=== PATIENT | female | born 1975 | race Caucasian/White ===

== ENCOUNTER 2024-12-19 12:39 | Emergency (ER) | payer MEDICAID, OTHER ==
[~2024-12-19] VITALS: Ht 170.2 cm; Wt 73.0 kg
[~2024-12-19 12:39] MED LIST: BCP; TYLENOL
--- NOTE | 2024-12-19 12:52 | ED.PDOC ---
GI ASSESSMENT HPI Comments HPI: Poor Historian. 49-year-old female presents to emergency department by EMS from home for one day history of right lower quadrant pain constant nonradiating with the associated mild nausea but no vomiting. Denies any other acute symptoms. Per EMS, pre- hospital course vital signs were stable. Patient denies Past Medical History: Asthma Past Surgical History: Left hand surgery Denies any use of drugs or alcohol REVIEW OF SYSTEMS: CONSTITUTIONAL: Denies acute: fever, diaphoresis, chills, generalized weakness. HEAD: Denies acute: headache, photophobia Eyes: Denies acute: Double vision, vision loss, eye pain, eye discharge. EARS: Denies acute: tinnitus, hearing loss, ear discharge, ear pain, THROAT: Denies acute: sore throat, swelling, difficulty swallowing , pain with swallowing, change in voice. NECK: Denies acute: neck pain, neck swelling, stiff neck. HEART: Denies acute : chest pain, palpitations, LUNGS: Denies acute: SOB, wheezing, cough, hemoptysis ABDOMEN: Denies acute: , Vomiting, diarrhea, melena , hematemesis, hematochezia SKIN: Denies acute: rash, redness, lesions, itchiness. EXTREMITIES: Denies acute: calf pain, numbness, tingling, weakness, denies pain in extremity. Denies acute: Low back pain. Neuro: Denies acute: focal neurological deficit, motor or sensory focal neurological deficit, tremors, seizure like activity, confusion, dizziness, change in mental status, loss of bowel or bladder function, cauda equina like symptoms. : Denies acute: dysuria, hematuria, flank pain, increase in urinary frequency. PSYCH: Denies acute: hallucination, suicidal ideation, homicidal ideation. FEMALE: Denies acute: abnormal vaginal bleeding, foul odor, unusual discharge. PHYSICAL EXAM: General: ----[id number]----acute distress, awake and alert. Head: normocephalic, atraumatic. Neck: supple, trachea is midline, no swelling. Throat: Normal phonation. Eyes:, no erythema, no purulent discharge, no proptosis, no icterus. Heart: regular rate, regular rhythm, no significant murmur appreciated. Lungs: no apparent respiratory distress, Able to speak in full sentences. No wheezing, no rhonchi, no crackles. No stridors Clear to auscultation bilaterally. Abdomen: Right lower quadrant tender to palpation, non distended, soft, no guarding, no rebound, + bowel sounds. Neuro: Awake, Alert, oriented to name, self, situation, follows commands GCS=15. Speech is normal. Skin: no petechia, no purpura, no cyanosis, non-pale, not jaundice. Lower extremities: --no - Pitting edema no deformity, no focal swelling, no calf TTP. Makes eye contact. moves all four extremities. Face: no apparent facial droop. No CVA tenderness to percussion bilaterally. ED COURSE: Chief Complaint: Abdominal Pain Time Seen by MD: 12:50 Reviewed Notes: Nurses Notes Allergies: Coded Allergies: NO KNOWN ALLERGIES (Unverified , 01/14/10) Home Meds Reported Medications [Bcp] No Conflict Check 01/14/10 [Tylenol] No Conflict Check 01/14/10 Information Source: Patient, Emergency Med Personnel Was a procedure done? Was a procedure done?: No GI differential Dx Differential Diagnosis: Other (DDX include Diverticulitis, colitis, gastroenteritis, acute abdomen, SBO, enteritis, constipation, volvulus, appendicitis, Gallbladder disease, choledocolithiasis, ascending cholangitis, pancreatitis, intraAbdominal mass/neoplasm, hepatitis, UTI, pylonephritis, kidney stone, aneurysm, dissection, Inflammatory bowel disease, gastroparesis, ischemic bowel, ovarian torsion, ovarian cyst/mass, tubo-ovarian abscess, , ectopic , PID, STD.) X-Ray, Labs, Meds, VS Vital Signs Date Time Temp Pulse Resp B/P (MAP) Pulse Ox O2 Delivery O2 Flow Rate FiO2 12/19/24 18:44 73 16 95 Room Air 12/19/24 18:44 97.8 73 16 114/54 (74) 95 97.8 12/19/24 16:14 97.6 68 20 126/79 (95) 97 97.6 12/19/24 16:11 62 20 95 Room Air* 0 21 12/19/24 15:56 98.2 68 20 129/75 (93) 95 98.2 12/19/24 12:48 98.2 72 14 99/76 (84) 92 98.2 Lab Test 12/19/24 16:57 12/19/24 13:12 Range/Units Urine Color Yellow Yellow Urine Clarity Clear Clear Urine pH 5.5 5.0-9.0 Urine Specific [place] 1.034 1.001-1.035 Urine Protein Trace H Negative Urine Ketones Negative Negative Urine Blood Negative Negative /uL Urine Nitrite Negative Negative Urine Bilirubin Negative Negative Urine Urobilinogen 2 H Negative mg/dL Urine Leukocyte Esterase Negative Negative /uL Urine RBC 1 0 - 4 /hpf Urine Microscopic WBC 2 0-5 /HPF Urine Squamous Epithelial Cells Few <5 /hpf Urine Bacteria Few H None Seen /hpf Urine Mucus Few None Seen Urine Glucose Normal Normal mg/dL Urine Test Negative Negative White Blood Count 11.9 H 4.4-10.8 10^3/uL Red Blood Count 4.86 4.0-5.20 10^6/uL Hemoglobin 15.2 12.2-16.2 g/dL Hematocrit 44.4 36.0-46.0 % Mean Corpuscular Volume 91.5 80.0-100.0 fL Mean Corpuscular Hemoglobin 31.2 28.0-32.0 pg Mean Corpuscular Hemoglobin Concent 34.1 32.0-36.0 g/dL Red Cell Distribution Width 13.1 11.8-14.3 % Platelet Count 230 140-450 10^3/uL Mean Platelet Volume 8.3 6.9-10.8 fL Neutrophils (%) (Auto) 77.4 37.0-80.0 % Lymphocytes (%) (Auto) 14.4 10.0-50.0 % Monocytes (%) (Auto) 6.3 0.0-12.0 % Eosinophils (%) (Auto) 0.8 0.0-7.0 % Basophils (%) (Auto) 1.1 0.0-2.0 % Neutrophils # (Auto) 9.2 H 1.6-8.6 10 ^3/uL Lymphocytes # (Auto) 1.7 0.4-5.4 10 ^3/uL Monocytes # (Auto) 0.8 0-1.3 10 ^3/uL Eosinophils # (Auto) 0.1 0-0.8 10 ^3/uL Basophils # (Auto) 0.1 0-0.2 10 ^3/uL Nucleated Red Blood Cells 0.1 % Sodium Level 141 136-145 mmol/L Potassium Level 4.8 3.5-5.1 mmol/L Chloride Level 110 H 98-107 mmol/L Carbon Dioxide Level 26 20-31 mmol/L Anion Gap 5 5-15 Blood Urea Nitrogen 13 9-23 mg/dL Creatinine 1.19 H 0.550-1.02 mg/dL Glomerular Filtration Rate Calc 57 >90 mL/min BUN/Creatinine Ratio 10.9 10.0-20.0 Serum Glucose 85 74-106 mg/dL Lactic Acid Level 1.3 0.4-2.0 mmol/L Calcium Level 9.8 8.7-10.4 mg/dL Total Bilirubin 1.0 0.2-1.0 mg/dL Aspartate Amino Transferase (AST) 22 13-40 U/L Alanine Aminotransferase (ALT) 21 7-40 U/L Alkaline Phosphatase 55 46-116 U/L Total Protein 6.6 5.7-8.2 g/dL Albumin 4.4 3.2-4.8 g/dL Lipase 38 12-53 U/L Current Medications Medications (Trade) Dose Ordered Sig/Sintia Route Start Time Stop Time Status Last Admin Sodium Chloride 1,000 ml @ 1,000 mls/hr Q1H ONCE IV 12/19/24 14:45 12/19/24 15:44 DC 12/19/24 16:18 Ketorolac Tromethamine (Toradol Injection) 30 mg ONCE ONCE IV 12/19/24 16:30 12/19/24 16:31 DC 12/19/24 16:24 PATIENT: STEPAN WHITNEYT: [id number]: [id number] : 1975 LOC: ER ROOM / BED: / AGE / SEX: 49 / F ADM STATUS: REG ER SERVICE 1252 ORDERING PHYSICIAN: JACOBY ALBERT DO PROCEDURE(s): ABPL - CT AB PEL WO CON-NO ORAL OR IV REASON: RLQ ORDER NUMBER(s): [id number], ACCESSION NUMBER(s): [id number] Exam: CT CT AB PEL WO CON-NO ORAL OR IV History: RLQ Comparison Study: None TECHNIQUE: Multidetector CT of the abdomen and pelvis without IV contrast. Axial, coronal and sagittal multiplanar reformats were obtained from the axial data set by the technologist. Radiation Dose Information: CT Dose: CTDI volume is 7.25 mGy. Dose-length product is 367.14 mGy*cm FINDINGS: The lung bases are clear. Partially visualized heart is unremarkable. Liver, gallbladder, pancreas and adrenal glands unremarkable. Nonspecific 2.4 x 1.4 cm hypodensity within the pancreas which may represent calcified lesion/ sequela of prior injury. Small splenule is noted adjacent to the spleen. Kidneys, ureters and urinary bladder are unremarkable. Uterus appears unremarkable. There is moderate to large amount of complex heterogeneous density within the pelvis, mainly over the cul-de-sac which may represent blood products. Stomach is unremarkable. Mild wall Thickening of proximal small bowel loops which may be due to inadequate distention. The remainder of the small bowel loops are nondistended. Appendix measures up to 8 mm without significant adjacent inflammatory reaction. Redundant sigmoid. Small to moderate amount of fecal material within the colon with decompression of the rectosigmoid No evidence of intraperitoneal free air. No evidence of aortic aneurysm. No significant lymphadenopathy. Tiny fat containing umbilical hernia. The soft tissues are unremarkable. No destructive osseous lesions are noted. IMPRESSION: Complex heterogeneous density within the pelvis mainly within the cul-de-sac which may represent blood products. Correlate for ruptured cyst/ ruptured ectopic. Recommend correlation with beta HCG and pelvic ultrasound for further evaluation. Appendix measures up to 8 mm without significant adjacent inflammatory reaction. Early acute appendicitis can not be excluded. Additional findings as above. ATED BY: FANNY VIRAMONTES DO DICTATED DATE/TIME: 12/19/241336 SIGNED BY: FANNY VIRAMONTES DO SIGNED DATE/TIME: 12/19/241336 PATIENT: OSEAS WHITNEY ACCT: [id number] UNIT: [id number] : 1975 LOC: ER ROOM / BED: / AGE / SEX: 49 / F ADM STATUS: REG ER SERVICE 1444 ORDERING PHYSICIAN: JACOBY ALBERT DO PROCEDURE(s): PELUS - PELVIC REASON: rlq pain ORDER NUMBER(s): [id number], ACCESSION NUMBER(s): [id number] INDICATION: rlq pain TECHNIQUE: Multiple real-time grayscale transabdominal sonographic images along with color and duplex Doppler of the uterus and ovaries were obtained. COMPARISON: None FINDINGS: The uterus measures 8 x 4.4 x 4.6 cm. The endometrial stripe measures 12 mm. The right ovary measures 2.7 x 1.4 x 1.6 cm. The left ovary measures 3 x 2.2 x 2.2 cm. Subsequent color and duplex Doppler interrogation of the ovaries demonstrated symmetric vascular flow to both ovaries, though this does not exclude the possibility of torsion due to the dual blood supply. IMPRESSION: 1. Grossly unremarkable pelvic ultrasound. ATED BY: NOE BARNETT Jr., DO DICTATED DATE/TIME: 12/19/241531 SIGNED BY: NOE BARNETT Jr., SIGNED DATE/TIME: 12/19/241531 Time of 1ST Reevaluation: 17:28 (As of now urinalysis still pending.) Reevaluation 1ST: Improved Time of 2ND Reevaluation: 00:00 Reevaluation 2ND: Resolved Patient Education/Counseling: Diagnosis, Treatment Family Education/Counseling: No Family Present Comments Patient presented with the above HPI.--abdominal pain/pelvic pain----workup was initiated. patient was found with the above mentioned diagnosis. the following medications were ordered: please refer to order lists of meds and tests obtained by myself Dr. Albert. Patient ED course and VS have been stabilized. Patient has been reassessed in the ED and remained in a stable condition. Pertinent incidental findings were discussed with the patient and/or family. Patient/family voices understanding and is agreeable with plan. Patient has been observed in the ED adequate length of time to insure improvement/stability. Escalation of care considered: Consideration of escalation to observation or admission Patient was DISCHARGED home in a stable condition. All the reports of any imaging studies that were ordered by myself were reviewed by myself. Departure 1 Departure Time of Disposition: 16:43 Impression: Primary Impression: Right lower quadrant pain Disposition: 01 HOME / SELF CARE / HOMELESS Condition: Stable Additional Instructions: ADDITIONAL INSTRUCTIONS: YOU MUST FOLLOW-UP WITH YOUR PRIMARY CARE/FAMILY DOCTOR IN 1 TO 2 DAYS. IF YOU ARE UNABLE TO SEE YOUR PRIMARY CARE/FAMILY DOCTOR, PLEASE RETURN TO OUR EMERGENCY ROOM FOR RE-ASSESSMENT AND RE-EVALUATION IN 1 TO 2 DAYS. RETURN TO THE EMERGENCY ROOM HERE IN OUR FACILITY OR TO THE NEAREST ER JE[facility] IF YOUR SYMPTOMS CHANGE OR WORSEN. CONSULTATIONS: YOU MUST FOLLOW-UP FOR CONSULTATION SOON POSSIBLE WITH: DR.-OB BARRERA DOCTOR IN 1-2 DAYS. PLEASE CALL FOR APPOINTMENT. YOU MUST CALL THE CONSULTANTS OFFICE YOURSELF TO MAKE AN APPOINTMENT. YOU MAY NEED TO ARRANGE THAT THROUGH YOUR INSURANCE AND/OR YOUR PRIMARY/FAMILY DOCTOR. IF YOU ARE UNABLE TO SEE THE ANIMAL SHELTER WORKER IN 1 TO 2 DAYS, YOU MUST RETURN TO OUR EMERGENCY ROOM (OR ANY OTHER ER OF YOUR CHOICE) FOR RE-ASSESSMENT AND RE- EVALUATION. ADEQUATE FLUID HYDRATION. PELVIC REST. BELOW IS A COPY OF YOUR RADIOLOGICAL REPORT FOR FOLLOW UP: [place] [address] Ph: [phone] DIAGNOSTIC IMAGING Diagnostic Imaging Report : [id number] Signed PATIENT: OSEAS WHITNEY ACCT: [id number] UNIT: [id number] : 1975 LOC: ER ROOM / BED: / AGE / SEX: 49 / F ADM STATUS: REG ER SERVICE 1444 ORDERING PHYSICIAN: JACOBY ALBERT DO PROCEDURE(s): PELUS - PELVIC REASON: rlq pain ORDER NUMBER(s): [id number], ACCESSION NUMBER(s): [id number] INDICATION: rlq pain TECHNIQUE: Multiple real-time grayscale transabdominal sonographic images along with color and duplex Doppler of the uterus and ovaries were obtained. COMPARISON: None FINDINGS: The uterus measures 8 x 4.4 x 4.6 cm. The endometrial stripe measures 12 mm. The right ovary measures 2.7 x 1.4 x 1.6 cm. The left ovary measures 3 x 2.2 x 2.2 cm. Subsequent color and duplex Doppler interrogation of the ovaries demonstrated symmetric vascular flow to both ovaries, though this does not exclude the possibility of torsion due to the dual blood supply. IMPRESSION: 1. Grossly unremarkable pelvic ultrasound. ATED BY: NOE BARNETT Jr., DO DICTATED DATE/TIME: 12/19/241531 SIGNED BY: NOE BARNETT Jr., DO SIGNED DATE/TIME: 12/19/24 1532 CC: [address] [id number] Ph: [phone] DIAGNOSTIC IMAGING Diagnostic Imaging Report : [id number] Signed PATIENT: OSEAS WHITNEY ACCT: [id number] UNIT: [id number] : 1975 LOC: ER ROOM / BED: / AGE / SEX: 49 / F ADM STATUS: REG ER SERVICE 1252 ORDERING PHYSICIAN: JACOBY ALBERT DO PROCEDURE(s): ABPL - CT AB PEL WO CON-NO ORAL OR IV REASON: RLQ ORDER NUMBER(s): [id number], ACCESSION NUMBER(s): [id number] Exam: CT CT AB PEL WO CON-NO ORAL OR IV History: RLQ Comparison Study: None TECHNIQUE: Multidetector CT of the abdomen and pelvis without IV contrast. Axial, coronal and sagittal multiplanar reformats were obtained from the axial data set by the technologist. Radiation Dose Information: CT Dose: CTDI volume is 7.25 mGy. Dose-length product is 367.14 mGy*cm FINDINGS: The lung bases are clear. Partially visualized heart is unremarkable. Liver, gallbladder, pancreas and adrenal glands unremarkable. Nonspecific 2.4 x 1.4 cm hypodensity within the pancreas which may represent calcified lesion/ sequela of prior injury. Small splenule is noted adjacent to the spleen. Kidneys, ureters and urinary bladder are unremarkable. Uterus appears unremarkable. There is moderate to large amount of complex heterogeneous density within the pelvis, mainly over the cul-de-sac which may represent blood products. Stomach is unremarkable. Mild wall Thickening of proximal small bowel loops which may be due to inadequate distention. The remainder of the small bowel loops are nondistended. Appendix measures up to 8 mm without significant adjacent inflammatory reaction. Redundant sigmoid. Small to moderate amount of fecal material within the colon with decompression of the rectosigmoid No evidence of intraperitoneal free air. No evidence of aortic aneurysm. No significant lymphadenopathy. Tiny fat containing umbilical hernia. The soft tissues are unremarkable. No destructive osseous lesions are noted. IMPRESSION: Complex heterogeneous density within the pelvis mainly within the cul-de-sac which may represent blood products. Correlate for ruptured cyst/ ruptured ectopic. Recommend correlation with beta HCG and pelvic ultrasound for further evaluation. Appendix measures up to 8 mm without significant adjacent inflammatory reaction. Early acute appendicitis can not be excluded. Additional findings as above. ATED BY: FANNY VIRAMONTES DO DICTATED DATE/TIME: 12/19/24 1337 SIGNED BY: FANNY VIRAMONTES DO SIGNED DATE/TIME: 12/19/24 1337 CC: Discharged With: Self Critical Care Note Critical Care Time?: No Heart Score Heart Score: Heart Score Response (Comments) Value History N/A 0 EKG N/A 0 Age N/A 0 Risk Factors N/A 0 Troponin N/A 0 Total 0 I personally scribed for JACOBY ALBERT DO ([email or web address]) on 12/19/24 at 13:50. Electronically submitted by Paul Jalloh ([email or web address]). I personally scribed for JACOBY ALBERT DO ([email or web address]) on 12/19/24 at 16:04. Electronically submitted by Paul Jalloh ([email or web address]). JACOBY ALBERT DO Dec 19, 2024 12:52
[2024-12-19 13:28] LABS: Basophils # (auto) 0.1 10 ^3/uL (0-0.2); Basophils % (auto) 1.1 % (0.0-2.0); Eosinophils # (auto) 0.1 10 ^3/uL (0-0.8); Eosinophils % (auto) 0.8 % (0.0-7.0); Hematocrit 44.4 % (36.0-46.0); Hemoglobin 15.2 g/dL (12.2-16.2); Lymphocytes # (auto) 1.7 10 ^3/uL (0.4-5.4); Lymphocytes % (auto) 14.4 % (10.0-50.0); Mean Corpuscular Hemoglobin 31.2 pg (28.0-32.0); Mean Corpuscular Hgb Conc. 34.1 g/dL (32.0-36.0); Mean Corpuscular Volume 91.5 fL (80.0-100.0); Monocytes # (auto) 0.8 10 ^3/uL (0-1.3); Monocytes % (auto) 6.3 % (0.0-12.0); Neutrophils # (auto) 9.2 10 ^3/uL (1.6-8.6); Neutrophils % (auto) 77.4 % (37.0-80.0); Nucleated Red Blood Cells % 0.1 %; Platelet Count (auto) 230 10^3/uL (140-450); Red Blood Cells 4.86 10^6/uL (4.0-5.20); Red Cell Distribution Width 13.1 % (11.8-14.3); White Blood Cell 11.9 10^3/uL (4.4-10.8)
--- NOTE | 2024-12-19 13:39 | DVH ---
Exam: CT CT AB PEL WO CON-NO ORAL OR IV History: RLQ Comparison Study: None TECHNIQUE: Multidetector CT of the abdomen and pelvis without IV contrast. Axial, coronal and sagitta l multiplanar reformats were obtained from the axial data set by the technologist. Radiation Dose Information: CT Dose: CTDI volume is 7.25 mGy. Dose-length product is 367.14 mGy*cm FINDINGS: The lung bases are clear. Partially visualized heart is unremarkable. Liver, gallbladder, pancreas and adrenal glands unremarkable. Nonspecific 2.4 x 1.4 cm hypodensity wi thin the pancreas which may represent calcified lesion/ sequela of prior injury. Small splenule is no juan alberto adjacent to the spleen. Kidneys, ureters and urinary bladder are unremarkable. Uterus appears unremarkable. There is moderate to large amount of complex heterogeneous density within the pelvis, mainly over the cul-de-sac which may represent blood products. Stomach is unremarkable. Mild wall Thickening of proximal small bowel loops which may be due to inade quate distention. The remainder of the small bowel loops are nondistended. Appendix measures up to 8 mm without significant adjacent inflammatory reaction. Redundant sigmoid. Small to moderate amount of fecal material within the colon with decompression of the rectosigmoid No evidence of intraperitoneal free air. No evidence of aortic aneurysm. No significant lymphadenopathy. Tiny fat containing umbilical hernia. The soft tissues are unremarkable. No destructive osseous lesio ns are noted. IMPRESSION: Complex heterogeneous density within the pelvis mainly within the cul-de-sac which may represent bloo d products. Correlate for ruptured cyst/ ruptured ectopic. Recommend correlation with beta HCG and p elvic ultrasound for further evaluation. Appendix measures up to 8 mm without significant adjacent inflammatory reaction. Early acute appendic itis can not be excluded. Additional findings as above.
[2024-12-19 13:49] LABS: Alanine Aminotransferase 21 U/L (7-40); Albumin 4.4 g/dL (3.2-4.8); Alkaline Phosphatase 55 U/L (46-116); Anion Gap 5 (5-15); Aspartate Aminotransferase 22 U/L (13-40); BUN/Creatinine Ratio 10.9 (10.0-20.0); Blood Urea Nitrogen 13 mg/dL (9-23); Calcium 9.8 mg/dL (8.7-10.4); Carbon Dioxide 26 mmol/L (20-31); Glucose 85 mg/dL (74-106); Potassium 4.8 mmol/L (3.5-5.1); Sodium 141 mmol/L (136-145); Total Protein 6.6 g/dL (5.7-8.2)
[2024-12-19 13:50] LABS: Chloride 110 mmol/L (98-107)
[2024-12-19 14:01] LABS: Lipase 38 U/L (12-53)
--- NOTE | 2024-12-19 15:36 | DVH ---
INDICATION: rlq pain TECHNIQUE: Multiple real-time grayscale transabdominal sonographic images along with color and duplex Doppler of the uterus and ovaries were obtained. COMPARISON: None FINDINGS: The uterus measures 8 x 4.4 x 4.6 cm. The endometrial stripe measures 12 mm. The right ovary measures 2.7 x 1.4 x 1.6 cm. The left ovary measures 3 x 2.2 x 2.2 cm. Subsequent color and duplex Doppler interrogation of the ovaries demonstrated symmetric vascular flow to both ovaries, though this does not exclude the possibility of torsion due to the dual blood suppl y. IMPRESSION: 1. Grossly unremarkable pelvic ultrasound.
[2024-12-19 16:11] VITALS: PULSE 62; RESP 20; O2SAT 95
[2024-12-19] MEDS: SODIUM CHLORIDE 0.9% 1,000 ML IV ONE (16:18)
[2024-12-19] MEDS: KETOROLAC TROMETH 30 MG/ML 1ML VIAL IV ONE (16:24)
[2024-12-19] MEDS: KETOROLAC TROMETH 30 MG/ML 1ML VIAL ONE (16:26)
[2024-12-19 18:01] LABS: Urine Bacteria FEW /hpf (None Seen); Urine Blood Negative /uL (Negative); Urine Clarity Clear (Clear); Urine Color Yellow (Yellow); Urine Mucus FEW (None Seen); Urine Protein, UAD TRACE (Negative); Urine Specific Gravity 1.034 (1.001-1.035); Urine Squamous Epithelial Cell FEW /hpf (<5); Urine Urobilinogen 2 mg/dL (Negative); Urine WBC 2 /HPF (0-5); Urine pH 5.5 (5.0-9.0)
[2024-12-19 18:44] VITALS: BP 114/54; PULSE 73; RESP 16; TEMP 97.8; O2SAT 95
== END 2024-12-19 18:45 | disposition home or self-care (01) ==
LOC: EDBD 12:39 → ER 12:39
DX: R10.31 Right lower quadrant pain (principal); R11.0 Nausea; J45.909 Unspecified asthma, uncomplicated; Z98.890 Other specified postprocedural states
CPT/HCPCS: 36415; 74176; 76856; 80053; 81001; 81025; 83605; 83690; 85025; 96361; 96374; 99285; J1885; J7030

== ENCOUNTER 2025-01-04 11:26 | Emergency (ER) | payer MEDICAID ==
[~2025-01-04] VITALS: Ht 170.2 cm; Wt 69.2 kg
--- NOTE | 2025-01-04 11:44 | ED.PDOC ---
GI ASSESSMENT HPI Comments HPI: Poor Historian. Past Medical History: Remote history of methamphetamine abuse. Past Surgical History: Denies any . Denies any recent use of drugs. 49y F who presents to the ED for chief complaint of abdominal pain. - pt states she has been having RLQ for the past 2 weeks - pt states the pain is intermittent, radiating to the R flank, sharp in nature, rating the pain 3/10, with noted exacerbating factor of movement and no relieving factors - pt states she has also been having Diarrhea since with 2 episodes yesterday and 1 episode today. - pt had BM today and states it was light green in color - pt states she was at [facility] 2 x weeks prior for similar complaints and had CT and ultrasound done and discharged with pain medications - pt denies any other symptoms at this time past medical history: HTN, asthma Past surgical history: L hand ,5th digit pin surgery allergies: denies medications: albuterol social history: endorses tobacco use, denies ETOH use, endorses drug use (methamphetamine use) History improves with the REVIEW OF SYSTEMS: CONSTITUTIONAL: Denies acute: fever, diaphoresis, chills, HEAD: Denies acute: headache, photophobia Eyes: Denies acute: Double vision, vision loss, eye pain, eye discharge. EARS: Denies acute: tinnitus, hearing loss, ear discharge, ear pain, THROAT: Denies acute: sore throat, swelling, difficulty swallowing , pain with swallowing, change in voice. NECK: Denies acute: neck pain, neck swelling, stiff neck. HEART: Denies acute : chest pain, palpitations, LUNGS: Denies acute: SOB, wheezing, cough, hemoptysis ABDOMEN: Denies acute: Nausea, Vomiting, melena , hematemesis, hematochezia SKIN: Denies acute: rash, redness, lesions, itchiness. EXTREMITIES: Denies acute: calf pain, numbness, tingling, weakness, denies pain in extremity. Denies acute: Low back pain. Neuro: Denies acute: focal neurological deficit, motor or sensory focal neurological deficit, tremors, seizure like activity, confusion, dizziness, change in mental status, loss of bowel or bladder function, cauda equina like symptoms. : Denies acute: dysuria, hematuria, flank pain, increase in urinary frequency. PSYCH: Denies acute: hallucination, suicidal ideation, homicidal ideation. FEMALE: Denies acute: abnormal vaginal bleeding, foul odor, unusual discharge. PHYSICAL EXAM: General: -----minimal---acute distress, awake and alert. Head: normocephalic, atraumatic. Neck: supple, trachea is midline, no swelling. Throat: Normal phonation. Eyes:, no erythema, no purulent discharge, no proptosis, no icterus. Heart: regular rate, regular rhythm, no significant murmur appreciated. Lungs: no apparent respiratory distress, Able to speak in full sentences. No wheezing, no rhonchi, no crackles. No stridors Clear to auscultation bilaterally. Abdomen: Right lower quadrant mostly at the right mid axillary overhead line worker to palpation, non distended, soft, no guarding, no rebound, + bowel sounds. Neuro: Awake, Alert, oriented to name, self, situation, follows commands GCS=15. Speech is normal. Skin: no petechia, no purpura, no cyanosis, non-pale, not jaundice. Lower extremities: --no - Pitting edema no deformity, no focal swelling, no calf TTP. Makes eye contact. moves all four extremities. Face: no apparent facial droop. Ambulating in the ED independently. ED COURSE: DISCLAIMER: This medical document was created using an electronic medical record system with voice recognition software and computerized dictation system. Although this document has been carefully reviewed, there might still be some phonetic and typographical errors. Occasional wrong-word or "sound-alike" substitutions may have occurred due to the inherent limitations of voice recognition software. These areas are purely typographical due to imperfections of the software programs and do not reflect any compromise in the patient's medical care. Please read the chart carefully and recognize, using context, where these substitutions have occurred. Chief Complaint: Abdominal Pain Time Seen by MD: 11:28 Reviewed Notes: Nurses Notes, Medications Allergies: Coded Allergies: NO KNOWN ALLERGIES (Unverified , 01/14/10) Home Meds Reported Medications [Bcp] No Conflict Check 01/14/10 [Tylenol] No Conflict Check 01/14/10 Information Source: Patient Mode of Arrival: Ambulatory Was a procedure done? Was a procedure done?: No X-Ray, Labs, Meds, VS Vital Signs Date Time Temp Pulse Resp B/P (MAP) Pulse Ox O2 Delivery O2 Flow Rate FiO2 01/04/25 15:55 Room Air* 0 21 01/04/25 14:15 97.7 72 16 116/71 (86) 95 97.7 01/04/25 11:43 98.3 84 17 127/80 (96) 96 98.3 Lab Test 01/04/25 12:16 Range/Units White Blood Count 10.8 4.4-10.8 10^3/uL Red Blood Count 5.16 4.0-5.20 10^6/uL Hemoglobin 16.3 H 12.2-16.2 g/dL Hematocrit 46.9 H 36.0-46.0 % Mean Corpuscular Volume 91.0 80.0-100.0 fL Mean Corpuscular Hemoglobin 31.7 28.0-32.0 pg Mean Corpuscular Hemoglobin Concent 34.8 32.0-36.0 g/dL Red Cell Distribution Width 13.1 11.8-14.3 % Platelet Count 242 140-450 10^3/uL Mean Platelet Volume 7.8 6.9-10.8 fL Neutrophils (%) (Auto) 75.4 37.0-80.0 % Lymphocytes (%) (Auto) 15.4 10.0-50.0 % Monocytes (%) (Auto) 6.6 0.0-12.0 % Eosinophils (%) (Auto) 2.3 0.0-7.0 % Basophils (%) (Auto) 0.3 0.0-2.0 % Neutrophils # (Auto) 8.1 1.6-8.6 10 ^3/uL Lymphocytes # (Auto) 1.7 0.4-5.4 10 ^3/uL Monocytes # (Auto) 0.7 0-1.3 10 ^3/uL Eosinophils # (Auto) 0.2 0-0.8 10 ^3/uL Basophils # (Auto) 0 0-0.2 10 ^3/uL Nucleated Red Blood Cells 0.0 % Urine Color Light-yellow Yellow Urine Clarity Turbid H Clear Urine pH 7.5 5.0-9.0 Urine Specific Blum 1.026 1.001-1.035 Urine Protein Trace H Negative Urine Ketones 1+ H Negative Urine Blood 2+ H Negative /uL Urine Nitrite Negative Negative Urine Bilirubin Negative Negative Urine Urobilinogen Normal Negative mg/dL Urine Leukocyte Esterase Negative Negative /uL Urine RBC 134 0 - 4 /hpf Urine Microscopic WBC 2 0-5 /HPF Urine Squamous Epithelial Cells Few <5 /hpf Urine Amorphous Crystals Few None Seen /hpf Urine Bacteria None seen None Seen /hpf Urine Mucus Few None Seen Urine Glucose Normal Normal mg/dL Urine Test Negative Negative Sodium Level 140 136-145 mmol/L Potassium Level 3.9 3.5-5.1 mmol/L Chloride Level 108 H 98-107 mmol/L Carbon Dioxide Level 25 20-31 mmol/L Anion Gap 7 5-15 Blood Urea Nitrogen 13 9-23 mg/dL Creatinine 1.11 H 0.550-1.02 mg/dL Glomerular Filtration Rate Calc 62 >90 mL/min BUN/Creatinine Ratio 11.7 10.0-20.0 Serum Glucose 103 74-106 mg/dL Lactic Acid Level 1.6 0.4-2.0 mmol/L Calcium Level 9.3 8.7-10.4 mg/dL Total Bilirubin 0.9 0.2-1.0 mg/dL Aspartate Amino Transferase (AST) 22 <34 U/L Alanine Aminotransferase (ALT) 22 7-40 U/L Alkaline Phosphatase 64 46-116 U/L Total Protein 6.7 5.7-8.2 g/dL Albumin 4.3 3.2-4.8 g/dL Lipase 40 12-53 U/L Urine Opiates Screen Neg NEGATIVE Urine Fentanyl Screen Neg NEGATIVE Urine Barbiturates Screen Neg NEGATIVE Urine Phencyclidine Screen Neg NEGATIVE Urine Amphetamines Screen Pos NEGATIVE Urine Benzodiazepines Screen Neg NEGATIVE Urine Cocaine Screen Neg NEGATIVE Urine Cannabinoids Screen Neg NEGATIVE [facility] [id number] [place] [address] Ph: [phone] DIAGNOSTIC IMAGING Diagnostic Imaging Report : [id number] Signed PATIENT: OSEAS WHITNEY ACCT: [id number] UNIT: [id number] : 1975 LOC: ER ROOM / BED: / AGE / SEX: 49 / F ADM STATUS: REG ER SERVICE 1143 ORDERING PHYSICIAN: JACOBY ALBERT DO PROCEDURE(s): ABPLIV - CT AB PEL WITH IV CON ONLY REASON: RLQ pain with diarrhea ORDER NUMBER(s): [id number], ACCESSION NUMBER(s): [id number] Exam: CT CT AB PEL WITH IV CON ONLY History: RLQ pain with diarrhea COMPARISON: None Technique: Multidetector spiral CT of the abdomen and pelvis was performed from lung bases to pubic symphysis. Intravenous contrast was administered during this examination. Portal venous imaging was obtained. Axial, coronal and sagittal multiplanar reformats were performed by the technologist on a separate workstation. Radiation Dose : Abdomen/Pelvis: CTDIvol 7.06 mGy, DLP 353.83 mGy*cm. CONTRAST: Type of contrast: Omni 300 Contrast injected: 99 mL Findings: Lung Bases: No acute or significant lung base finding. Normal heart size. No pleural or pericardial effusion. Liver: The liver is normal in size. No focal lesions. Normal hepatic vascular enhancement. Gallbladder and biliary Tree: Contracted. Spleen: Irregular shaped with coarse calcification peripherally. Pancreas: The pancreas is normal in appearance without focal lesions or abnormal enhancement. Adrenal Glands: Unremarkable Kidneys: No hydronephrosis. Bladder: Unremarkable Bowel: The stomach is grossly normal in appearance. Small bowel and colon are normal in caliber and distribution. Normal appendix is visualized in the right lower quadrant without findings of appendicitis. Ascites: Trace free fluid in the pelvis is likely physiologic. Lymphadenopathy: No mesenteric, retroperitoneal or periportal lymphadenopathy. Abdominal wall and Mesentery: Unremarkable. Vasculature: The visualized abdominal aorta is normal in size and caliber. Abdominal and pelvic vessels demonstrate normal enhancement. Pelvic Organs: Unremarkable Musculoskeletal: No aggressive focal bony lesions, acute fractures or dislocation. IMPRESSION: 1. No acute abdominal or pelvic finding. Likely scarring of the spleen with coarse calcification related to remote insult. Contracted gallbladder. Previously seen high density fluid in the pelvis has largely resolved. Radiation optimization: All CT scans at this facility use at least one of these dose optimization techniques: Automated exposure control mA and/or kV adjustment per patient size (includes targeted exams where dose is matched to clinical indication) or iterative reconstruction. HS:Y ATED BY: WOJCIECH CRAMER MD DICTATED DATE/TIME: 01/04/25 1402 SIGNED BY: WOJCIECH CRAMER MD SIGNED DATE/TIME: 01/04/25 1402 CC: Patient Education/Counseling: Diagnosis, Treatment Family Education/Counseling: No Family Present Departure 1 Departure Time of Disposition: 15:32 Impression: Primary Impression: Abdominal pain Additional Impressions: Diarrhea Methamphetamine abuse Disposition: 01 HOME / SELF CARE / HOMELESS Condition: Stable Additional Instructions: Additional instructions: You MUST follow-up with your primary care/family doctor in 1 to 2 days. If you are unable to see your primary care/family doctor, please return to our emergency room for re-assessment and re-evaluation in 1 to 2 days. Return to the emergency room here in our facility or to the nearest ER [facility] if your symptoms change or worsen. CONSULTATIONS: you MUST Follow-up for consultation as soon as possible with: -gastroenterology in 1-2 days. Please call for appointment. OB Gyne doctor in 1-2 days. Please call for appointment. You MUST call the consultants office yourself to make an appointment. You may need to arrange that through your insurance and/or your primary/family doctor. If you are unable to see the home sales consultant in 1 to 2 days, you must return to our emergency room (or any other ER of your choice) for re-assessment and re- evaluation. Adequate fluid hydration. Below is a copy of your radiological report for follow up: [place] [address] Ph: [phone] DIAGNOSTIC IMAGING Diagnostic Imaging Report : [id number] Signed PATIENT: OSEAS WHITNEY ACCT: [id number] UNIT: [id number] : 1975 LOC: ER ROOM / BED: / AGE / SEX: 49 / F ADM STATUS: REG ER SERVICE 1143 ORDERING PHYSICIAN: JACOBY ALBERT DO PROCEDURE(s): ABPLIV - CT AB PEL WITH IV CON ONLY REASON: RLQ pain with diarrhea ORDER NUMBER(s): [id number], ACCESSION NUMBER(s): [id number] Exam: CT CT AB PEL WITH IV CON ONLY History: RLQ pain with diarrhea COMPARISON: None Technique: Multidetector spiral CT of the abdomen and pelvis was performed from lung bases to pubic symphysis. Intravenous contrast was administered during this examination. Portal venous imaging was obtained. Axial, coronal and sagittal multiplanar reformats were performed by the technologist on a separate workstation. Radiation Dose : Abdomen/Pelvis: CTDIvol 7.06 mGy, DLP 353.83 mGy*cm. CONTRAST: Type of contrast: Omni 300 Contrast injected: 99 mL Findings: Lung Bases: No acute or significant lung base finding. Normal heart size. No pleural or pericardial effusion. Liver: The liver is normal in size. No focal lesions. Normal hepatic vascular enhancement. Gallbladder and biliary Tree: Contracted. Spleen: Irregular shaped with coarse calcification peripherally. Pancreas: The pancreas is normal in appearance without focal lesions or abnormal enhancement. Adrenal Glands: Unremarkable Kidneys: No hydronephrosis. Bladder: Unremarkable Bowel: The stomach is grossly normal in appearance. Small bowel and colon are normal in caliber and distribution. Normal appendix is visualized in the right lower quadrant without findings of appendicitis. Ascites: Trace free fluid in the pelvis is likely physiologic. Lymphadenopathy: No mesenteric, retroperitoneal or periportal lymphadenopathy. Abdominal wall and Mesentery: Unremarkable. Vasculature: The visualized abdominal aorta is normal in size and caliber. Abdominal and pelvic vessels demonstrate normal enhancement. Pelvic Organs: Unremarkable Musculoskeletal: No aggressive focal bony lesions, acute fractures or dislocation. IMPRESSION: 1. No acute abdominal or pelvic finding. Likely scarring of the spleen with coarse calcification related to remote insult. Contracted gallbladder. Previously seen high density fluid in the pelvis has largely resolved. Radiation optimization: All CT scans at this facility use at least one of these dose optimization techniques: Automated exposure control mA and/or kV adjustment per patient size (includes targeted exams where dose is matched to clinical indication) or iterative reconstruction. HS:Y ATED BY: WOJCIECH CRAMER MD DICTATED DATE/TIME: 01/04/25 140 SIGNED BY: WOJCIECH CRAMER MD SIGNED DATE/TIME: 01/04/25 140 CC: Discharged With: Self Critical Care Note Critical Care Time?: No I personally scribed for JACOBY ALBERT DO ([email or web address]) on 01/04/25 at 11:44. Electronically submitted by Kevyn Mcconnell ([email or web address]). I personally scribed for JACOBY ALBERT DO ([email or web address]) on 01/04/25 at 12:18. Electronically submitted by Kevyn Mcconnell ([facility]). I personally scribed for JACOBY ALBERT DO ([facility]) on 01/04/25 at 14:52. Electronically submitted by [facility]cconnell ([facility] I personally scribed for JACOBY ALBERT DO ([facility]) on 01/04/25 at 15:35. Electronically submitted by Kevyn Mcconnell ([facility]). I personally scribed for JACOBY ALBERT DO ([facility]) on 01/04/25 at 21:40. Electronically submitted by Kevyn Mcconnell ([facility]). JACOBY ALBERT DO Jan 04, 2025 11:44
[2025-01-04 12:31] LABS: Basophils # (auto) 0 10 ^3/uL (0-0.2); Basophils % (auto) 0.3 % (0.0-2.0); Eosinophils # (auto) 0.2 10 ^3/uL (0-0.8); Eosinophils % (auto) 2.3 % (0.0-7.0); Hematocrit 46.9 % (36.0-46.0); Hemoglobin 16.3 g/dL (12.2-16.2); Lymphocytes # (auto) 1.7 10 ^3/uL (0.4-5.4); Lymphocytes % (auto) 15.4 % (10.0-50.0); Mean Corpuscular Hemoglobin 31.7 pg (28.0-32.0); Mean Corpuscular Hgb Conc. 34.8 g/dL (32.0-36.0); Monocytes # (auto) 0.7 10 ^3/uL (0-1.3); Monocytes % (auto) 6.6 % (0.0-12.0); Neutrophils # (auto) 8.1 10 ^3/uL (1.6-8.6); Neutrophils % (auto) 75.4 % (37.0-80.0); Platelet Count (auto) 242 10^3/uL (140-450); Red Blood Cells 5.16 10^6/uL (4.0-5.20); Red Cell Distribution Width 13.1 % (11.8-14.3); White Blood Cell 10.8 10^3/uL (4.4-10.8)
[2025-01-04] MEDS: IOHEXOL 300 MG/ML 100ML BOTTLE IJ ONE (12:44)
[2025-01-04 12:48] LABS: Amphetamine Screen, Urine Pos (NEGATIVE); Barbiturate Scree,Urine Neg (NEGATIVE); Benzodiazephine Screen, Urine Neg (NEGATIVE); Cannabinoid Screen, Urine Neg (NEGATIVE); Cocaine Screen, Urine Neg (NEGATIVE); Opiate Scree,Urine Neg (NEGATIVE); Phencyclidine Screen, Urine Neg (NEGATIVE)
[2025-01-04 12:49] LABS: Alanine Aminotransferase 22 U/L (7-40); Albumin 4.3 g/dL (3.2-4.8); Alkaline Phosphatase 64 U/L (46-116); Anion Gap 7 (5-15); Aspartate Aminotransferase 22 U/L (<34); BUN/Creatinine Ratio 11.7 (10.0-20.0); Bilirubin, Total 0.9 mg/dL (0.2-1.0); Blood Urea Nitrogen 13 mg/dL (9-23); Calcium 9.3 mg/dL (8.7-10.4); Carbon Dioxide 25 mmol/L (20-31); Chloride 108 mmol/L (98-107); Glucose 103 mg/dL (74-106); Lipase 40 U/L (12-53); Potassium 3.9 mmol/L (3.5-5.1); Sodium 140 mmol/L (136-145); Total Protein 6.7 g/dL (5.7-8.2)
--- NOTE | 2025-01-04 14:04 | DVH ---
Exam: CT CT AB PEL WITH IV CON ONLY History: RLQ pain with diarrhea COMPARISON: None Technique: Multidetector spiral CT of the abdomen and pelvis was performed from lung bases to pubic symphysis. Intravenous contrast was administered during this examination. Portal venous imaging was obtained. Axial, coronal and sagittal multiplanar reformats were performed by the technologist on a separate workstation. Radiation Dose : Abdomen/Pelvis: CTDIvol 7.06 mGy, DLP 353.83 mGy*cm. CONTRAST: Type of contrast: Omni 300 Contrast injected: 99 mL Findings: Lung Bases: No acute or significant lung base finding. Normal heart size. No pleural or pericardial effusion. Liver: The liver is normal in size. No focal lesions. Normal hepatic vascular enhancement. Gallbladder and biliary Tree: Contracted. Spleen: Irregular shaped with coarse calcification peripherally. Pancreas: The pancreas is normal in appearance without focal lesions or abnormal enhancement. Adrenal Glands: Unremarkable Kidneys: No hydronephrosis. Bladder: Unremarkable Bowel: The stomach is grossly normal in appearance. Small bowel and colon are normal in caliber and d istribution. Normal appendix is visualized in the right lower quadrant without findings of appendicit is. Ascites: Trace free fluid in the pelvis is likely physiologic. Lymphadenopathy: No mesenteric, retroperitoneal or periportal lymphadenopathy. Abdominal wall and Mesentery: Unremarkable. Vasculature: The visualized abdominal aorta is normal in size and caliber. Abdominal and pelvic vess els demonstrate normal enhancement. Pelvic Organs: Unremarkable Musculoskeletal: No aggressive focal bony lesions, acute fractures or dislocation. IMPRESSION: 1. No acute abdominal or pelvic finding. Likely scarring of the spleen with coarse calcification rela juan alberto to remote insult. Contracted gallbladder. Previously seen high density fluid in the pelvis has la rgely resolved. Radiation optimization: All CT scans at this facility use at least one of these dose optimization kylah hniques: Automated exposure control mA and/or kV adjustment per patient size (includes targeted exams where dose is matched to clinical indication) or iterative reconstruction. HS:Y
[2025-01-04 14:15] VITALS: BP 116/71; PULSE 72; RESP 16; TEMP 97.7; O2SAT 95
[2025-01-04 15:35] LABS: Urine Bacteria None Seen /hpf (None Seen)
[2025-01-04 15:40] LABS: Urine Amorphous Crystal FEW /hpf (None Seen); Urine Blood 2+ /uL (Negative); Urine Clarity Turbid (Clear); Urine Color Light-Yellow (Yellow); Urine Mucus FEW (None Seen); Urine Protein, UAD TRACE (Negative); Urine Specific Gravity 1.026 (1.001-1.035); Urine Squamous Epithelial Cell FEW /hpf (<5); Urine Urobilinogen Normal (Negative); Urine WBC 2 /HPF (0-5); Urine pH 7.5 (5.0-9.0)
== END 2025-01-04 16:24 | disposition home or self-care (01) ==
LOC: ER 11:26
DX: R10.31 Right lower quadrant pain (principal); R19.7 Diarrhea, unspecified; F15.10 Other stimulant abuse, uncomplicated; F17.290 Nicotine dependence, other tobacco product, uncomplicated; I10 Essential (primary) hypertension; J45.909 Unspecified asthma, uncomplicated; Z98.890 Other specified postprocedural states; Z79.899 Other long term (current) drug therapy
CPT/HCPCS: 36415; 74177; 80053; 80307; 81001; 81025; 83605; 83690; 85025; 99285; Q9967